=== PATIENT | male | born 1960 | race African-American/Black ===

== ENCOUNTER 2017-05-26 03:30 | Emergency (ER) | payer BC, SELFPAY ==
[2017-05-26 04:02] LABS: Bilirubin Negative (Negative); Blood, Urine Negative (Negative); Clarity CLEAR (Clear); Glucose, Urine (Dipstick) >=1000 mg/dL (Negative); Leukocyte Small (Negative); Nitrite Negative (Negative); Protein, Urine (Dipstick) Negative (Neg-Trace); Specific Gravity, Urine 1.023 (1.002-1.036)
[2017-05-26 04:05] LABS: Bacteria/HPF None Seen HPF (None Seen); Hyaline Casts/LPF 0-3 HYALINE CAST LPF (0-3 Hyaline); RBC/HPF 0-3 HPF (0-3); Squamous Epithelial 0-3 HPF (0-3); Yeast-AUWi Flag 28.3 (0-25.0); Yeast-All Forms None Seen HPF (None Seen)
[2017-05-26 04:14] LABS: #Basophils 0.1 thou/uL (0.0-0.2); #Eosinphils 0.2 thou/uL (0.0-0.7); #Lymphocytes 2.6 thou/uL (1.20-3.40); #Monocytes 0.6 thou/uL (0.11-0.59); #Neutrophils 3.4 thou/uL (1.40-6.50); %Eosinophils 2.4 % (0.0-10.0); %Lymphocytes 37.8 % (21.0-51.0); %Monocytes 9.2 % (0.0-10.0); %Neutrophils 49.6 % (42.0-75.0); Hemoglobin 13.9 g/dL (14.0-18.0); Mean Corpuscular HGB CONC 33.7 g/dL (32.0-36.0); Mean Corpuscular Hemoglobin 28.3 pg (27.0-31.0); Mean Corpuscular Volume 83.9 fl (80.0-94.0); Mean Platelet Volume 10.7 fL (7.4-10.4); Platelet Count 205 thou/uL (130-400); RBC Distribution Width 14.6 % (11.5-14.5); White Blood Cell (WBC) Count 6.8 thou/uL (4.8-10.8)
[2017-05-26 04:38] LABS: ALT (SGPT) 18 U/L (8-55); AST (SGOT) 18 U/L (5-34); Albumin 4.1 g/dL (3.5-5.0); Alkaline Phosphatase 84 U/L (40-150); Anion Gap 14 mmol/L (10-20); BUN (Urea Nitrogen) 23 mg/dL (8.4-25.7); Bilirubin, Total 0.4 mg/dL (0.2-1.2); Calc. Creatinine Clearance 0 mL/min (70-130); Calcium 9.2 mg/dL (7.8-10.44); Carbon Dioxide 20 mmol/L (22-29); Chloride 106 mmol/L (98-107); Estimated GFR-MDRD 63; Globulin 3.9 g/dL (2.4-3.5); Glucose 482 mg/dL (70-105); Potassium 4.3 mmol/L (3.5-5.1); Sodium 136 mmol/L (136-145)
[2017-05-26] MEDS ORDERED: Insulin Regular 300 UNITS/3 ML VIAL ONE (04:52)
== END 2017-05-26 06:25 | disposition home or self-care (01) ==
LOC: ERS 03:30
DX: E11.65 Type 2 diabetes mellitus with hyperglycemia (principal); I10 Essential (primary) hypertension
CPT/HCPCS: 36416; 80053; 81003; 81015; 85025; 87086; 96360; 96361; 96372; J1815

== ENCOUNTER 2020-08-03 14:18 | Outpatient (CLI) | payer BC | END 2020-08-03 14:19 | disposition home or self-care (01) | LOC: DTY/OP 14:18 | PROVIDERS: ATTEND Family Medicine | DX: E11.65 Type 2 diabetes mellitus with hyperglycemia (principal) | CPT/HCPCS: 97802 ==

== ENCOUNTER 2024-01-18 01:34 | Emergency (ER) | payer BC ==
[2024-01-18] MEDS ORDERED: Proparacaine 0.5% Opth 15 ML BOT ONE (01:49)
[2024-01-18] MEDS ORDERED: Erythromycin Base 0.5% Oint 1 GM TUBE ONE (01:56)
== END 2024-01-18 01:59 | disposition home or self-care (01) ==
LOC: ERS 01:34
DX: H10.9 Unspecified conjunctivitis (principal); I10 Essential (primary) hypertension; E11.9 Type 2 diabetes mellitus without complications
CPT/HCPCS: 99282

== ENCOUNTER 2025-02-04 04:13 | Emergency (ER) | payer BC ==
[2025-02-04] MEDS ORDERED: Ketorolac Tromethamine 30 MG (1 mL) VIAL ONE (06:31)
== END 2025-02-04 08:25 | disposition home or self-care (01) ==
LOC: ERS 04:13
DX: M17.11 Unilateral primary osteoarthritis, right knee (principal); E11.9 Type 2 diabetes mellitus without complications; I10 Essential (primary) hypertension
CPT/HCPCS: 96372; 99283; J1885